=== PATIENT | male | born 1975 | race Two or more races ===

== ENCOUNTER 2022-11-24 16:11 | Emergency (ER) | payer SELFPAY ==
[~2022-11-24] VITALS: Ht 182.9 cm; Wt 150.0 kg
[~2022-11-24 16:11] MED LIST: AML5T PO
[2022-11-24 16:36] VITALS: BP 163/111
== END 2022-11-24 18:57 | disposition home or self-care (01) ==
LOC: ER 16:11
DX: R04.0 Epistaxis (principal); I10 Essential (primary) hypertension

== ENCOUNTER 2022-11-24 23:52 | Emergency (ER) | payer SELFPAY ==
[~2022-11-24] VITALS: Ht 182.9 cm; Wt 166.3 kg
[2022-11-25] MEDS ORDERED: OXYMETAZOLINE HCL 0.05 % NASAL SPRAY 15ML EACHNOSTRI ONE (01:00)
[2022-11-25 07:05] VITALS: BP 147/102
== END 2022-11-25 07:14 | disposition home or self-care (01) ==
LOC: ER 23:52
DX: R04.0 Epistaxis (principal); I10 Essential (primary) hypertension